=== PATIENT | female | born 1970 | race Caucasian/White ===

== ENCOUNTER → 2021-03-09 | Day surgery (SDC) | payer BC ==
[~2021-03-09] MED LIST: HUMALOG 10100 UNITS/ SC; LEVEMIR100 UNIT/1 SQ; MONTELUKAST SOD10 MG PO
== END | disposition home or self-care (01) ==
LOC: OR 06:51
DX: Z12.11 Encounter for screening for malignant neoplasm of colon (principal); Z12.12 Encounter for screening for malignant neoplasm of rectum; K63.5 Polyp of colon; E10.9 Type 1 diabetes mellitus without complications; Z79.4 Long term (current) use of insulin; F17.210 Nicotine dependence, cigarettes, uncomplicated; Z20.822 Contact with and (suspected) exposure to COVID-19
CPT/HCPCS: 82962; J7120